=== PATIENT | female | born 1975 | race Caucasian/White ===

== ENCOUNTER 2023-10-31 14:42 | Emergency (ER) | payer OTHER, SELFPAY ==
[2023-10-31] VITALS (22 sets, daily range): BP systolic 114–167; BP diastolic 71–103; PULSE 83–117; RESP 14–36; TEMP 36.7–36.8; O2SAT 94–100; BMI 29.0
--- NOTE | 2023-10-31 14:40 | XR_ITS ---
FINAL REPORT CLINICAL HISTORY: Fall/trauma FINDINGS: Right ankle Three views were obtained. There is a displaced trimalleolar fracture dislocation of the ankle. There is full shaft with of posterior displacement of the talus in relation to the distal tibia. The mortise is disrupted. IMPRESSION: Fracture dislocation as above. Reviewed, Interpreted and Dictated by Joel Page MD Transcribed by Eloise Delvalle Authenticated and . [facility]
--- NOTE | 2023-10-31 14:40 | XR_ITS ---
FINAL REPORT CLINICAL HISTORY: Fall/trauma FINDINGS: Right foot Two views were obtained. There is no acute fracture or dislocation of the foot. Redemonstrated is the trimalleolar fracture as detailed in the ankle report. IMPRESSION: No acute foot fracture. Reviewed, Interpreted and Dictated by Joel Page MD Transcribed by Eloise Delvalle Authenticated and [facility]
--- NOTE | 2023-10-31 14:40 | XR_ITS ---
FINAL REPORT CLINICAL HISTORY: Fall/trauma FINDINGS: Right tibia fibula Two views were obtained. There is a displaced trimalleolar fracture dislocation of the ankle. There is full shaft width of posterior displacement of the talus in relation to the distal tibia. Vertical fracture line is seen extending into the distal tibial metaphysis. The mortise is disrupted. IMPRESSION: Displaced trimalleolar fracture dislocation as above. Reviewed, Interpreted and Dictated by Joel Page MD Transcribed by Eloise Delvalle Authenticated and [facility]
--- NOTE | 2023-10-31 14:42 | ED_ITS ---
<Statement entered by Jerrica Denson DO - 10/31/23 14:58> I was consulted by the MATT, and we discussed the complexity of the problems being addressed. I approved the treatment and management plan for this patient's care in the emergency department, thus performing a substantive portion of the medical decision making. Jerrica Denson DO Discharge Plan Disposition Patient Disposition: Home, Self-Care Condition: Good Prescriptions Prescriptions: New hydrocodone-acetaminophen 5-325 mg tablet 1 tab PO Q6H PRN (Reason: pain) 3 Days Qty: 12 0RF No Action sertraline 100 MG tablet 1 tab PO DAILY benzonatate 100 MG capsule 100 mg PO TID PRN (Reason: Cough) Qty: 30 0RF oseltamivir 75 MG capsule 75 mg PO BID Qty: 10 0RF Referrals Follow up/Referrals: Az Mcclain DO [Staff Physician] - See instructions Provider,Referral, [Primary Care Provider] - See instructions Activity Restrictions/Add. Instructions Additional Instructions/Restrictions: Please elevate your extremity when not ambulating. You have been advised to be total nonweightbearing. Follow-up tomorrow morning with Dr. Mcclain of orthopedics. Please call his office in the morning for an appointment time. Clinical Impressions Clinical Impression: Closed trimalleolar fracture Qualifiers: Encounter type: initial encounter Laterality: right Qualified Code(s): S82.851A - Displaced trimalleolar fracture of right lower leg, initial encounter for closed fracture Closed dislocation of ankle Qualifiers: Encounter type: initial encounter Laterality: right Qualified Code(s): S93.04XA - Dislocation of right ankle joint, initial encounter Instructions Patient Instructions: DI for Moderate Sedation Discharge ED Provider: Jerrica Denson General Adult HPI <GUMARO Robles - Last Filed: 10/31/23 16:53> General Chief complaint: Extremity Injury, Lower Stated complaint: fall Time Seen by Provider: 10/31/23 14:50 History of Present Illness HPI narrative: Patient presents for evaluation of right lower extremity injury. Patient was leaving her house to go run errands when she stumbled down a step losing her balance causing her ankle to roll underneath her. She felt a pop something to the ground. Patient could not arise nor bear weight and EMS was called. Patient arrives complaining of right lower extremity pain. She denies injury to any other part of her body including striking her head or losing consciousness. Patient currently denies chest pain shortness of breath fever chills hemoptysis hematochezia melena nausea vomiting diarrhea. Related Data Home Medications Medication Instructions Recorded Confirmed sertraline 100 mg tablet 1 tab PO DAILY MOOD 08/13/19 08/13/19 Previous Rx's Medication Instructions Recorded benzonatate 100 mg capsule 100 mg PO TID PRN Cough #30 caps 08/13/19 oseltamivir 75 mg capsule 75 mg PO BID #10 caps 08/13/19 hydrocodone 5 mg-acetaminophen 325 1 tab PO Q6H PRN pain 3 days #12 10/31/23 mg tablet tabs Allergies Allergy/AdvReac Type Severity Reaction Status Date / Time promethazine [From PHENERGAN] Allergy Intermediate NA-NAUSEA Verified 08/13/19 13:23 [facility] <GUMARO Robles - Last Filed: 10/31/23 16:53> [facility] Disclaimer: The information contained in this section may have been updated after the patient was seen, as this information can be updated by other users. Social History Smoking Status: Current every day smoker tobacco type: cigarettes packs per day: 1 second hand exposure: Yes alcohol intake: never current occupational status: employed Travel in the last 8 weeks: None housing: house <GUMARO Robles - Last Filed: 10/31/23 16:53> ROS Obtained: Yes Systems reviewed as appropriate & no additional complaints except as documented Physical Exam <GUMARO Robles - Last Filed: 10/31/23 16:53> General General appearance: alert and in no apparent distress Head Head exam: atraumatic and normal inspection Respiratory Respiratory exam: Present normal lung sounds bilaterally; Absent respiratory distress Cardiovascular Cardiovascular exam: Present regular rate and normal rhythm Neurological Exam Neurological exam: Present alert and oriented X3 Other Other exam information: Focal examination of the right lower extremity shows deformity at the distal aspect of the tibia-fibula/ankle. Patient currently is neurovascularly intact. Patient has significant amount of edema/ecchymosis developing. Range of motion not tested. There does appear to be a subcutaneous bony deformity. Medical Decision Making <GUMARO Robles - Last Filed: 10/31/23 16:53> Medical Records Medical records reviewed: Yes I reviewed the patient's medical records. Dar Inquiry Pt receiving controlled substance: No Vital Signs: 10/31/23 14:40 10/31/23 16:04 10/31/23 16:05 Temperature 98.2 F Temperature Source Oral Pulse Rate 96 H Pulse Rate [Right] 102 H 105 H Respiratory Rate 20 17 18 Blood Pressure 148/86 H Blood Pressure [Right Arm] 129/85 148/86 H Blood Pressure Mean [Right Arm] 99 106 Blood Pressure Source Blood Pressure Position 02 Sat by Pulse Oximetry 95 99 99 Oxygen Delivery Method Room Air Room Air Room Air 10/31/23 16:06 10/31/23 16:08 10/31/23 16:10 Temperature Temperature Source Pulse Rate 112 H 117 H 114 H Pulse Rate [Right] Respiratory Rate 14 36 H 24 Blood Pressure 162/103 H 164/92 H 167/89 H Blood Pressure [Right Arm] Blood Pressure Mean [Right Arm] Blood Pressure Source Blood Pressure Position 02 Sat by Pulse Oximetry 99 96 99 Oxygen Delivery Method Room Air Room Air Room Air 10/31/23 16:10 10/31/23 16:15 10/31/23 16:18 Temperature Temperature Source Pulse Rate 102 H Pulse Rate [Right] 113 H 111 H Respiratory Rate 22 22 21 Blood Pressure 144/87 H Blood Pressure [Right Arm] 164/92 H 167/89 H Blood Pressure Mean [Right Arm] 116 115 Blood Pressure Source Blood Pressure Position 02 Sat by Pulse Oximetry 95 97 98 Oxygen Delivery Method Room Air Room Air Room Air 10/31/23 16:20 10/31/23 16:25 10/31/23 16:30 Temperature Temperature Source Pulse Rate Pulse Rate [Right] 97 H 90 99 H Respiratory Rate 20 20 20 Blood Pressure Blood Pressure [Right Arm] 144/87 H 148/79 H 163/91 H Blood Pressure Mean [Right Arm] 106 102 115 Blood Pressure Source Blood Pressure Position 02 Sat by Pulse Oximetry 98 100 100 Oxygen Delivery Method Room Air 10/31/23 16:35 10/31/23 16:38 10/31/23 16:40 Temperature Temperature Source Pulse Rate 101 H Pulse Rate [Right] 98 H 83 Respiratory Rate 18 21 20 Blood Pressure 163/91 H Blood Pressure [Right Arm] 152/88 H 137/75 Blood Pressure Mean [Right Arm] 109 95 Blood Pressure Source Blood Pressure Position 02 Sat by Pulse Oximetry 100 99 99 Oxygen Delivery Method Room Air 10/31/23 16:40 04/17/24 16:58 10/31/23 17:00 Temperature Temperature Source Pulse Rate 104 H 101 H 115 H Pulse Rate [Right] Respiratory Rate 15 24 19 Blood Pressure 152/88 H 142/83 H 145/86 H Blood Pressure [Right Arm] Blood Pressure Mean [Right Arm] Blood Pressure Source Blood Pressure Position 02 Sat by Pulse Oximetry 97 97 99 Oxygen Delivery Method Room Air Room Air Room Air 10/31/23 17:10 10/31/23 17:20 10/31/23 17:20 Temperature Temperature Source Pulse Rate 95 H 88 Pulse Rate [Right] 91 H Respiratory Rate 14 20 15 Blood Pressure 137/75 145/83 H Blood Pressure [Right Arm] 145/83 H Blood Pressure Mean [Right Arm] 103 Blood Pressure Source Blood Pressure Position 02 Sat by Pulse Oximetry 100 96 98 Oxygen Delivery Method Room Air Room Air 10/31/23 17:30 10/31/23 17:40 10/31/23 17:50 Temperature Temperature Source Pulse Rate 87 85 88 Pulse Rate [Right] Respiratory Rate 17 25 H 22 Blood Pressure 131/85 129/80 114/73 Blood Pressure [Right Arm] Blood Pressure Mean [Right Arm] Blood Pressure Source Blood Pressure Position 02 Sat by Pulse Oximetry 95 96 94 L Oxygen Delivery Method 10/31/23 18:25 Temperature 98.0 F Temperature Source Oral Pulse Rate 84 Pulse Rate [Right] Respiratory Rate 18 Blood Pressure 117/71 Blood Pressure [Right Arm] Blood Pressure Mean [Right Arm] Blood Pressure Source Automatic Cuff Blood Pressure Position Sitting 02 Sat by Pulse Oximetry Oxygen Delivery Method Room Air Lab Data Lab results reviewed: Yes I reviewed the patient's lab results. Lab Results 10/31/23 14:45: WBC 11.1 H, RBC 4.66, Hgb 15.0, Hct 43.7, MCV 93.8, MCH 32.2 H, MCHC 34.3, RDW 12.8, Plt Count 271, MPV 7.8, Neut % (Auto) 79.2, Lymph % (Auto) 16.4, Harvey % (Auto) 3.4, Eos % (Auto) 0.6, Baso % (Auto) 0.4, Neut # (Auto) 8.8 H, Lymph # (Auto) 1.8, Harvey # (Auto) 0.4, Eos # (Auto) 0.1, Baso # (Auto) 0.0, PT 10.3, INR 0.95, Sodium 139, Potassium 3.7, Chloride 108 H, Carbon Dioxide 25, Anion Gap 9.7, BUN 13, Creatinine 0.70, Estimated Creat Clear 127, Estimated GFR 89, Est GFR ( Amer) 108, Glucose 119 H, Calcium 9.4 10/31/23 14:45 10/31/23 14:45 Orders (Tests/Meds): ED MEDICATIONS Discontinued Medications Generic Name Dose Route Start Last Admin Trade Name Freq PRN Reason Stop Dose Admin Acetaminophen 1,000 mg 10/31/23 14:40 10/31/23 14:54 Acetaminophen 1,000mg/100ml Vial IV 10/31/23 14:41 1,000 mg ONCE ONE Administration Hydromorphone HCl 0.5 mg 10/31/23 15:40 10/31/23 17:03 Hydromorphone 2mg/Ml Syringe IV 10/31/23 15:41 Not Given ONCE ONE Lactated Ringer's 1,000 mls @ 999 mls/hr 10/31/23 15:40 10/31/23 15:59 Lactated Ringer's 1000 Ml Bag IV 10/31/23 16:40 999 mls/hr .Q1H1M ONE Administration Ketamine HCl 80 mg 10/31/23 16:05 10/31/23 17:08 Ketamine 50mg/1ml Syringe IV 10/31/23 16:06 80 mg ONCE ONE Administration Ketamine HCl 25 mg 10/31/23 16:18 10/31/23 17:09 Ketamine 50mg/1ml Syringe IV 10/31/23 16:19 25 mg ONCE ONE Administration Ketamine HCl 15 mg 10/31/23 16:29 10/31/23 17:09 Ketamine 50mg/1ml Syringe IV 10/31/23 16:30 15 mg ONCE ONE Administration Ketorolac Tromethamine 15 mg 10/31/23 14:40 10/31/23 14:53 Ketorolac 30mg/Ml Vial IV 10/31/23 14:41 15 mg ONCE ONE Administration Morphine Sulfate 2 mg 10/31/23 14:40 10/31/23 14:54 Morphine 2mg/Ml Syringe IV 10/31/23 14:41 2 mg ONCE ONE Administration Morphine Sulfate 4 mg 10/31/23 15:02 10/31/23 15:05 Morphine 4mg/Ml Syringe IV 10/31/23 15:03 4 mg ONCE ONE Administration ORDERS Category Date Time Status CT ankle RT wo con Stat Cat Scan 10/31/23 16:43 Completed Ankle XR -Right minimum 3 Views [XR ankle RT min 3V] Exams 10/31/23 14:40 Completed Stat Foot XR right 2 views [XR foot RT 2V] Stat Exams 10/31/23 14:40 Completed Tibia/fibula XR right 2 views [XR tibia fibula RT 2V] Exams 10/31/23 14:40 Completed Stat XR ankle RT 2V Stat Exams 10/31/23 16:09 Completed XR foot LT min 3V Stat Exams 10/31/23 16:17 Completed BMP [Basic Metabolic Panel] Stat Lab 10/31/23 14:45 Completed CBC w/Auto Diff [Complete Blood Count Auto Diff] Stat Lab 10/31/23 14:45 Completed INR [Prothrombin Time INR] Stat Lab 10/31/23 14:45 Completed Medical Decision Narrative: In summary patient is a 48-year-old female who presents to the emergency department for evaluation of right lower extremity injury. Patient is normotensive slightly tachycardic at 102 with respiratory rate of 20 satting at 95% on room air upon arrival, febrile. Physical exam is remarkable for right lower extremity deformity at the proximal aspect of the ankle significant amount of pain. Patient is currently neurovascular intact with palpable PT and DP pulses. Anterior compartment is slightly tense currently.. Differential diagnosis includes tib-fib fracture versus trimalleolar fracture versus severe sprain etc. Initial workup will be conducted with hematologic labs and plain film x-rays. Initial interventions include fluid bolus Tylenol Toradol morphine. Initial workup reviewed by me my informal review shows the patient has fracture dislocation of the right ankle appears to be trimalleolar. Discussed patient management with Dr. Mcclain of orthopedic surgery and he recommended reduction possible and follow-up in his office for operative planning swelling goes down. Upon repeat evaluation patient has been not been able to be reduced after multiple attempts by Dr. Peralta. Again a discussion about patient management was had with Dr. Mcclain just documented below. Given this discharged with prescription for opiates, instructions for nonweightbearing, crutches, follow-up and referral to Dr. Mcclain of orthopedics. This is Dr. Peralta 4:48 PM patient had a trimalleolar fracture with an anterior displaced tibia with a tibiotalar dislocation. After multiple attempts at reduction there is acceptable lateral reduction however there was persistent anterior displacement of the tibia and a very large comminuted fragment in the posterior mal with a very unstable foot. I discussed the case with Dr. Mcclain and believe that I cannot get any more anatomic reduction in the emergency department and he agreed to no longer try further and this is acceptable at the moment and for her to follow-up tomorrow in clinic for operative planning soon. A CT scan was requested by him for surgical planning. <Ashley Peralta MD - Last Filed: 10/31/23 18:08> Vital Signs: 10/31/23 14:40 10/31/23 16:04 10/31/23 16:05 Temperature 98.2 F Temperature Source Oral Pulse Rate 96 H Pulse Rate [Right] 102 H 105 H Respiratory Rate 20 17 18 Blood Pressure 148/86 H Blood Pressure [Right Arm] 129/85 148/86 H Blood Pressure Mean [Right Arm] 99 106 Blood Pressure Source Blood Pressure Position 02 Sat by Pulse Oximetry 95 99 99 Oxygen Delivery Method Room Air Room Air Room Air 10/31/23 16:06 10/31/23 16:08 10/31/23 16:10 Temperature Temperature Source Pulse Rate 112 H 117 H 114 H Pulse Rate [Right] Respiratory Rate 14 36 H 24 Blood Pressure 162/103 H 164/92 H 167/89 H Blood Pressure [Right Arm] Blood Pressure Mean [Right Arm] Blood Pressure Source Blood Pressure Position 02 Sat by Pulse Oximetry 99 96 99 Oxygen Delivery Method Room Air Room Air Room Air 10/31/23 16:10 10/31/23 16:15 10/31/23 16:18 Temperature Temperature Source Pulse Rate 102 H Pulse Rate [Right] 113 H 111 H Respiratory Rate 22 22 21 Blood Pressure 144/87 H Blood Pressure [Right Arm] 164/92 H 167/89 H Blood Pressure Mean [Right Arm] 116 115 Blood Pressure Source Blood Pressure Position 02 Sat by Pulse Oximetry 95 97 98 Oxygen Delivery Method Room Air Room Air Room Air 10/31/23 16:20 10/31/23 16:25 10/31/23 16:30 Temperature Temperature Source Pulse Rate Pulse Rate [Right] 97 H 90 99 H Respiratory Rate 20 20 20 Blood Pressure Blood Pressure [Right Arm] 144/87 H 148/79 H 163/91 H Blood Pressure Mean [Right Arm] 106 102 115 Blood Pressure Source Blood Pressure Position 02 Sat by Pulse Oximetry 98 100 100 Oxygen Delivery Method Room Air 10/31/23 16:35 10/31/23 16:38 10/31/23 16:40 Temperature Temperature Source Pulse Rate 101 H Pulse Rate [Right] 98 H 83 Respiratory Rate 18 21 20 Blood Pressure 163/91 H Blood Pressure [Right Arm] 152/88 H 137/75 Blood Pressure Mean [Right Arm] 109 95 Blood Pressure Source Blood Pressure Position 02 Sat by Pulse Oximetry 100 99 99 Oxygen Delivery Method Room Air 10/31/23 16:40 10/31/23 16:58 10/31/23 17:00 Temperature Temperature Source Pulse Rate 104 H 101 H 115 H Pulse Rate [Right] Respiratory Rate 15 24 19 Blood Pressure 152/88 H 142/83 H 145/86 H Blood Pressure [Right Arm] Blood Pressure Mean [Right Arm] Blood Pressure Source Blood Pressure Position 02 Sat by Pulse Oximetry 97 97 99 Oxygen Delivery Method Room Air Room Air Room Air 10/31/23 17:10 10/31/23 17:20 10/31/23 17:20 Temperature Temperature Source Pulse Rate 95 H 88 Pulse Rate [Right] 91 H Respiratory Rate 14 20 15 Blood Pressure 137/75 145/83 H Blood Pressure [Right Arm] 145/83 H Blood Pressure Mean [Right Arm] 103 Blood Pressure Source Blood Pressure Position 02 Sat by Pulse Oximetry 100 96 98 Oxygen Delivery Method Room Air Room Air 10/31/23 17:30 10/31/23 17:40 10/31/23 17:50 Temperature Temperature Source Pulse Rate 87 85 88 Pulse Rate [Right] Respiratory Rate 17 25 H 22 Blood Pressure 131/85 129/80 114/73 Blood Pressure [Right Arm] Blood Pressure Mean [Right Arm] Blood Pressure Source Blood Pressure Position 02 Sat by Pulse Oximetry 95 96 94 L Oxygen Delivery Method 10/31/23 18:25 Temperature 98.0 F Temperature Source Oral Pulse Rate 84 Pulse Rate [Right] Respiratory Rate 18 Blood Pressure 117/71 Blood Pressure [Right Arm] Blood Pressure Mean [Right Arm] Blood Pressure Source Automatic Cuff Blood Pressure Position Sitting 02 Sat by Pulse Oximetry Oxygen Delivery Method Room Air Lab Data Lab Results 10/31/23 14:45: WBC 11.1 H, RBC 4.66, Hgb 15.0, Hct 43.7, MCV 93.8, MCH 32.2 H, MCHC 34.3, RDW 12.8, Plt Count 271, MPV 7.8, Neut % (Auto) 79.2, Lymph % (Auto) 16.4, Harvey % (Auto) 3.4, Eos % (Auto) 0.6, Baso % (Auto) 0.4, Neut # (Auto) 8.8 H, Lymph # (Auto) 1.8, Harvey # (Auto) 0.4, Eos # (Auto) 0.1, Baso # (Auto) 0.0, PT 10.3, INR 0.95, Sodium 139, Potassium 3.7, Chloride 108 H, Carbon Dioxide 25, Anion Gap 9.7, BUN 13, Creatinine 0.70, Estimated Creat Clear 127, Estimated GFR 89, Est GFR ( Amer) 108, Glucose 119 H, Calcium 9.4 Orders (Tests/Meds): ED MEDICATIONS Discontinued Medications Generic Name Dose Route Start Last Admin Trade Name Freq PRN Reason Stop Dose Admin Acetaminophen 1,000 mg 10/31/23 14:40 10/31/23 14:54 Acetaminophen 1,000mg/100ml Vial IV 10/31/23 14:41 1,000 mg ONCE ONE Administration Hydromorphone HCl 0.5 mg 10/31/23 15:40 10/31/23 17:03 Hydromorphone 2mg/Ml Syringe IV 10/31/23 15:41 Not Given ONCE ONE Lactated Ringer's 1,000 mls @ 999 mls/hr 10/31/23 15:40 10/31/23 15:59 Lactated Ringer's 1000 Ml Bag IV 10/31/23 16:40 999 mls/hr .Q1H1M ONE Administration Ketamine HCl 80 mg 10/31/23 16:05 10/31/23 17:08 Ketamine 50mg/1ml Syringe IV 10/31/23 16:06 80 mg ONCE ONE Administration Ketamine HCl 25 mg 10/31/23 16:18 10/31/23 17:09 Ketamine 50mg/1ml Syringe IV 10/31/23 16:19 25 mg ONCE ONE Administration Ketamine HCl 15 mg 10/31/23 16:29 10/31/23 17:09 Ketamine 50mg/1ml Syringe IV 10/31/23 16:30 15 mg ONCE ONE Administration Ketorolac Tromethamine 15 mg 10/31/23 14:40 10/31/23 14:53 Ketorolac 30mg/Ml Vial IV 10/31/23 14:41 15 mg ONCE ONE Administration Morphine Sulfate 2 mg 10/31/23 14:40 10/31/23 14:54 Morphine 2mg/Ml Syringe IV 10/31/23 14:41 2 mg ONCE ONE Administration Morphine Sulfate 4 mg 10/31/23 15:02 10/31/23 15:05 Morphine 4mg/Ml Syringe IV 10/31/23 15:03 4 mg ONCE ONE Administration ORDERS Category Date Time Status CT ankle RT wo con Stat Cat Scan 10/31/23 16:43 Completed Ankle XR -Right minimum 3 Views [XR ankle RT min 3V] Exams 10/31/23 14:40 Completed Stat Foot XR right 2 views [XR foot RT 2V] Stat Exams 10/31/23 14:40 Completed Tibia/fibula XR right 2 views [XR tibia fibula RT 2V] Exams 10/31/23 14:40 Completed Stat XR ankle RT 2V Stat Exams 10/31/23 16:09 Completed XR foot LT min 3V Stat Exams 10/31/23 16:17 Completed BMP [Basic Metabolic Panel] Stat Lab 10/31/23 14:45 Completed CBC w/Auto Diff [Complete Blood Count Auto Diff] Stat Lab 10/31/23 14:45 Completed INR [Prothrombin Time INR] Stat Lab 10/31/23 14:45 Completed Medical Decision Narrative: In summary patient is a 48-year-old female who presents to the emergency department for evaluation of right lower extremity injury. Patient is normotensive slightly tachycardic at 102 with respiratory rate of 20 satting at 95% on room air upon arrival, febrile. Physical exam is remarkable for right lower extremity deformity at the proximal aspect of the ankle significant amount of pain. Patient is currently neurovascular intact with palpable PT and DP pulses. Anterior compartment is slightly tense currently.. Differential diagnosis includes tib-fib fracture versus trimalleolar fracture versus severe sprain etc. Initial workup will be conducted with hematologic labs and plain film x-rays. Initial interventions include fluid bolus Tylenol Toradol morphine. Initial workup reviewed by me my informal review shows the patient has fracture dislocation of the right ankle appears to be trimalleolar. Discussed patient management with Dr. Mcclain of orthopedic surgery and he recommended reduction possible and follow-up in his office for operative planning swelling goes down. Upon repeat evaluation patient has been not been able to be reduced after multiple attempts by Dr. Peralta. Again a discussion about patient management was had with Dr. Mcclain just documented below. Given this discharged with prescription for opiates, instructions for nonweightbearing, crutches, follow-up and referral to Dr. Mcclain of orthopedics. This is Dr. Peralta 4:48 PM patient had a trimalleolar fracture with an anterior displaced tibia with a tibiotalar dislocation. After multiple attempts at reduction there is acceptable lateral reduction however there was persistent anterior displacement of the tibia and a very large comminuted fragment in the posterior mal with a very unstable foot. I discussed the case with Dr. Mcclain and believe that I cannot get any more anatomic reduction in the emergency department and he agreed to no longer try further and this is acceptable at the moment and for her to follow-up tomorrow in clinic for operative planning soon. A CT scan was requested by him for surgical planning. Once fully awake further discussion with the patient was had as well as with her son and her son's fianc?. They are aware that she is to be nonweightbearing to follow-up with Dr. Mcclain CT scan was performed which shows evidence of what we described above but described radiology as a pilon fracture. They are aware to follow-up with Dr. Mcclain tomorrow and will call his clinic. She was neurovascular tact upon being discharged. Procedures <Ashley Peralta MD - Last Filed: 10/31/23 18:08> Orthopedic Fracture Reduction Fracture #1: Time Out Performed: Yes Side: right Fracture Reduction Location: tibia and fibula Analgesia: procedural sedation Technique: direct manipulation and traction/counter-traction Post Reduction X-rays Demonstrate: acceptable reduction (After multiple attempts there is still anterior displacement of the tibia with significant posterior fragments and the ankle is incredibly unstable after discussing with our orthopedic surgeon this is acceptable at the moment as she will be going to the operating room soon) Post-reduction neuro exam: intact Post-reduction vascular exam: intact Splint Applied: Yes Patient Tolerated Procedure: well Procedural Sedation A heart and lung assessment was performed on this patient at: 16:00 Mallampati Score:: Class I Indication: fracture/dislocation reduction ASA Class: I Preparation: equipment monitor phototypesetting applied, pulse oximeter, capnometry used, supplemental O2 applied, reversal agents at bedside and suction/airway equipment at bedside Ketamine: IV Ketamine dose (mg): 120 Additional Comments: Start time 4:05 PM Stop time 4:38 PM Critical Care <GUMARO Robles - Last Filed: 10/31/23 16:53> Critical Care Time Critical Care Time: No
[2023-10-31] MEDS: KETOROLAC 30MG/ML VIAL 15 MG IV (14:53)
[2023-10-31] MEDS: ACETAMINOPHEN 1,000MG/100ML VIAL 1000 MG IV (14:54)
[2023-10-31] MEDS: MORPHINE 2MG/ML SYRINGE 2 MG IV (14:54)
--- NOTE | 2023-10-31 15:03 | PC.NURSE ---
XR AT BEDSIDE
[2023-10-31 15:05] LABS: Basophils % 0.4 % (0.1-2.0); Eosinophils # 0.1 K/mm3 (0.0-0.4); Eosinophils % 0.6 % (0.1-12.0); Hematocrit 43.7 % (37.0-47.0); Lymphocytes # 1.8 K/mm3 (0.7-4.5); Lymphocytes % 16.4 % (10-50); Mean Corpuscular HGB Conc 34.3 g/dL (31.8-35.4); Mean Corpuscular Hemoglobin 32.2 pg (27.0-31.2); Mean Corpuscular Volume 93.8 fl (81-99); Mean Platelet Volume 7.8 fl (7.4-10.4); Monocytes # 0.4 K/mm3 (0.1-1.0); Monocytes % 3.4 % (1.7-9.3); Neutrophils # 8.8 K/mm3 (1.8-7.8); Neutrophils % 79.2 % (37.0-80.0); Platelet Count 271 K/mm3 (142-424); Red Blood Count 4.66 M/mm3 (4.20-5.40); Red Cell Distribution Width 12.8 % (11.5-17.5); White Blood Count 11.1 K/mm3 (4.8-10.8)
[2023-10-31] MEDS: MORPHINE 4MG/ML SYRINGE 4 MG IV (15:05)
[2023-10-31 15:13] LABS: INR 0.95 (0.9-1.1); Prothrombin Time 10.3 seconds (10.1-12.5)
[2023-10-31 15:18] LABS: Chloride 108 mmol/L (98-107); Sodium 139 mmol/L (136-145)
[2023-10-31 15:19] LABS: Potassium 3.7 mmoL/L (3.5-5.1)
[2023-10-31 15:22] LABS: Anion Gap 9.7 mEq/L (5-15); Blood Urea Nitrogen 13 mg/dl (7-17); Calcium 9.4 mg/dl (8.4-10.2); Carbon Dioxide 25 mmol/L (22.0-30.0); Creatinine Clearance Estimated 127 mL/min (50-200); Estimated Glomerular Filt Rate 89 ml/min (>60); GFR (African American) 108 ML/MIN (>60); Glucose 119 mg/dl (74-100)
[2023-10-31] MEDS: LACTATED RINGERS 1000ML 1,000 ML 999 ML IV (15:59)
--- NOTE | 2023-10-31 16:09 | XR_ITS ---
PROCEDURE INFORMATION: Exam: XR Right Ankle Exam date and time: 10/31/2023 4:09 PM Age: 48 years old Clinical indication: Pain; Other: Post reduction TECHNIQUE: Imaging protocol: Radiologic exam of the right ankle. Views: 1 or 2 views. COMPARISON: CR XR ANKLE RT MIN 3V 10/31/2023 2:59 PM FINDINGS: Bones/joints: Plaster cast in place. Comminuted fracture of the distal tibia with intra-articular extension and anterior subluxation of the majority of the tibia with respect to the talar dome. Comminuted fracture of the distal fibula. Soft tissues: Diffuse soft tissue swelling. IMPRESSION: 1. Findings compatible with a Pilon fracture. Associated comminuted fibular fracture. 2. Diffuse soft tissue swelling.
--- NOTE | 2023-10-31 16:17 | XR_ITS ---
PROCEDURE INFORMATION: Exam: XR Left Foot Exam date and time: 10/31/2023 4:36 PM Age: 48 years old Clinical indication: Pain; Ankle and foot; Left TECHNIQUE: Imaging protocol: Radiologic exam of the left foot. Views: 3 or more views. COMPARISON: No relevant prior studies available. FINDINGS: Bones/joints: Mild degenerative changes involving the 1st metatarsophalangeal articulation. Soft tissues: Normal. IMPRESSION: No evidence of acute osseous injury.
--- NOTE | 2023-10-31 16:43 | CT_ITS ---
PROCEDURE INFORMATION: Exam: CT Right Lower Extremity Without Contrast, Ankle Exam date and time: 10/31/2023 4:50 PM Age: 48 years old Clinical indication: Pain; Other: Operative planning TECHNIQUE: Imaging protocol: CT of the right lower extremity without contrast was performed. Exam focused on the ankle. 3D rendering (Not supervised by radiologist): MIP and/or 3D reconstructed images were created by the technologist. Radiation optimization: All CT scans at this facility use at least one of these dose optimization techniques: automated exposure control; mA and/or kV adjustment per patient size (includes targeted exams where dose is matched to clinical indication); or iterative reconstruction. COMPARISON: CR XR ANKLE RT 2V 10/31/2023 4:09 PM FINDINGS: Bones/joints: The comminuted fracture of the lateral malleolus. Fragment by up to 3.5 mm. Comminuted fracture of the distal tibia with intra-articular extension. Major distal tibial fragment results in 1.5 cm separation of the posterior malleolus from the remainder of the tibia. Anterior displacement and subluxation of the distal tibia with respect to the talar dome. Soft tissues: Diffuse soft tissue swelling. IMPRESSION: Findings compatible with pilon fracture as described above. Associated comminuted fibular fracture as described.
[2023-10-31] MEDS: KETAMINE 50MG/1ML SYRINGE 80 MG IV (17:08)
[2023-10-31] MEDS: KETAMINE 50MG/1ML SYRINGE 25 MG IV (17:09)
[2023-10-31] MEDS: KETAMINE 50MG/1ML SYRINGE 15 MG IV (17:09)
== END 2023-10-31 18:25 | disposition home or self-care (01) ==
PROVIDERS: Physician Assistant; Emergency Provider Emergency Medicine
DX: S82.851A Displaced trimalleolar fracture of right lower leg, initial encounter for closed fracture (principal); S93.04XA Dislocation of right ankle joint, initial encounter; F17.210 Nicotine dependence, cigarettes, uncomplicated; W10.8XXA Fall (on) (from) other stairs and steps, initial encounter
CPT/HCPCS: 99152; 99153; 73590; 73600; 73610; 73620; 73630; 73700; 80048; 85025; 85610; 96361; 96374; 96375; 99285; J0131